=== PATIENT | male | born 1955 | race Caucasian/White ===

== ENCOUNTER 2025-06-25 10:16 | Day surgery (SDC) | payer MEDICARE ==
[2025-06-25] MEDS ORDERED: Depo-Medrol 40 MG/ML IM ONE (10:17)
[2025-06-25] MEDS ORDERED: LIDOCAINE HCL 1% 50 MG/5 ML VL IJ ONE (10:17)
[2025-06-25] MEDS ORDERED: Zofran 4 MG/2 ML VIAL ONE (11:39)
[2025-06-25] MEDS ORDERED: Reglan 10 MG/2 ML ONE (11:39)
[2025-06-25] MEDS ORDERED: Pepcid 20 MG VIAL IV ONE (11:39)
[2025-06-25] MEDS ORDERED: Versed 2 MG/2 ML Injection ONE (12:10)
[2025-06-25] MEDS ORDERED: propofoL IV ONE (12:51)
[2025-06-25] MEDS ORDERED: Lactated Ringers 1,000 ML IV ONE (14:31)
--- NOTE | 2025-06-25 15:14 | XRAY ---
Indication: Bilateral L4-S1 MBB. Intraoperative fluoroscopy provided for 12 seconds. Single digital spot image submitted for interpretation demonstrates posterior needle tips projecting over expected left and right L4-S1 nerve roots. Correlate with intraoperative findings/report.
--- NOTE | 2025-06-25 22:12 | XRAY ---
12 seconds of fluoroscopy was used in surgery for a bilateral L4-S1 MBB.
== END 2025-06-25 13:25 | disposition home or self-care (01) ==
LOC: SDC-PAIN 10:16
PROVIDERS: ATTEND Psychiatry & Neurology Pain Medicine
DX: M47.817 Spondylosis without myelopathy or radiculopathy, lumbosacral region (principal); E11.9 Type 2 diabetes mellitus without complications

== ENCOUNTER 2025-09-16 09:29 | Day surgery (SDC) | payer MEDICARE ==
[2025-09-16] MEDS ORDERED: BUPIVACAINE 0.5% VIAL IJ ONE (09:30)
[2025-09-16] MEDS ORDERED: methylPREDNISolone acetate IM ONE (09:30)
[2025-09-16] MEDS ORDERED: LIDOCAINE HCL 1% 50 MG/5 ML VL IJ ONE (09:30)
[2025-09-16] MEDS ORDERED: propofoL IV ONE (11:51)
[2025-09-16] MEDS ORDERED: Lactated Ringers 1,000 ML IV ONE (14:03)
--- NOTE | 2025-09-16 14:46 | XRAY ---
Indication: Left L4-S1 RFA. Intraoperative fluoroscopy provided for 20 seconds. 3 digital spot image submitted for interpretation demonstrates posterior needle tips projecting over expected left L4-S1 nerve roots. Correlate with intraoperative findings/report.
--- NOTE | 2025-09-16 15:04 | XRAY ---
20 seconds of fluoroscopy was used in surgery for a left L4-S1 RFA.
== END 2025-09-16 12:35 | disposition home or self-care (01) ==
LOC: SDC-PAIN 09:29
PROVIDERS: ATTEND Psychiatry & Neurology Pain Medicine
DX: M47.817 Spondylosis without myelopathy or radiculopathy, lumbosacral region (principal); E11.9 Type 2 diabetes mellitus without complications